=== PATIENT | male | born 1975 | race Caucasian/White ===

== ENCOUNTER 2021-04-16 11:35 | Emergency (ER) | payer SELFPAY ==
[2021-04-16 12:39] LABS: #Eosinphils 0.1 10x3/uL (0.0-0.5); #Monocytes 0.5 10x3/uL (0.0-1.1); #Neutrophils 5.5 10x3/uL (1.5-8.4); %Basophils 0.6 % (0.0-2.0); %Eosinophils 1.1 % (0.0-6.0); %Lymphocytes 13.6 % (18.0-47.0); %Monocytes 6.9 % (0.0-10.0); %Neutrophils 77.2 % (40.0-75.0); Mean Corpuscular HGB CONC 32.5 g/dL (32.0-36.0); Mean Corpuscular Hemoglobin 32.1 pg (27.0-33.0); Mean Corpuscular Volume 98.8 fl (81.2-95.1); Mean Platelet Volume 9.9 fl (7.4-10.4); Platelet Count 100 10x3/uL (150-450); RBC Distribution Width 17.4 % (11.5-14.5); Red Blood Cell (RBC) Count 2.49 10x6/uL (4.32-5.72); White Blood Cell (WBC) Count 7.1 10x3/uL (3.5-10.5)
[2021-04-16 12:44] LABS: INR-International Normal Ratio 1.7; Prothrombin Time 18.7 sec (9.5-12.1)
[2021-04-16 12:48] LABS: ALT (SGPT) 19 U/L (8-55); AST (SGOT) 48 U/L (5-34); Albumin 3.3 g/dL (3.5-5.0); Alkaline Phosphatase 75 U/L (40-110); Anion Gap 13 mmol/L (10-20); BUN (Urea Nitrogen) 13 mg/dL (8.9-20.6); Bilirubin, Total 12.5 mg/dL (0.2-1.2); Calc. Creatinine Clearance 0 mL/min (70-130); Calcium 8.4 mg/dL (7.8-10.44); Carbon Dioxide 22 mmol/L (22-29); Chloride 98 mmol/L (98-107); Globulin 3.9 g/dL (2.4-3.5); Glucose 150 mg/dL (70-105); Protein, Total 7.2 g/dL (6.0-8.3); Sodium 130 mmol/L (136-145)
[2021-04-16 12:56] LABS: Potassium 2.9 mmol/L (3.5-5.1)
[2021-04-16] MEDS ORDERED: Potassium Chloride 20 MEQ TAB ONE (13:28)
[2021-04-16] MEDS ORDERED: Ondansetron PF 4 MG/2 ML Vial ONE (13:35)
[2021-04-16] MEDS ORDERED: Lidocaine 1% PF 5 ML VIAL ONE (14:59)
[2021-04-16] MEDS ORDERED: Sodium Bicarbonate 2.5 MEQ/5 ML VIAL ONE (14:59)
[2021-04-16] MEDS ORDERED: Ibuprofen 200 MG TAB ONE (16:20)
[2021-04-16 16:52] LABS: Potassium 2.9 mmol/L (3.5-5.1)
== END 2021-04-16 16:59 | disposition home or self-care (01) ==
LOC: CSHERS 11:35
DX: R18.8 Other ascites (principal); F17.290 Nicotine dependence, other tobacco product, uncomplicated
CPT/HCPCS: 36415; 49083; 80053; 85025; 85610; 96374; J2405